=== PATIENT | female | born 1960 | race Caucasian/White ===

== ENCOUNTER 2016-12-19 18:40 | Inpatient (IN) ==
[2016-12-19 19:54] LABS: Basophils # 0.1 K/mcL (0.0-0.2); Basophils % 0.5 %; Eosinophils # 0.2 K/mcL (0.0-0.6); Eosinophils % 2.6 %; Hematocrit 36.6 % (35.3-44.9); Hemoglobin 12.2 g/dL (11.5-15.4); Immature Granulocytes % 0.2 % (0-4); Lymphocytes # 1.9 K/mcL (0.6-4.6); Lymphocytes % 19.7 %; Mean Corpuscular HGB Conc 33.3 g/dL (31.6-35.5); Mean Corpuscular Hemoglobin 29.9 pg (28.0-33.3); Mean Corpuscular Volume 89.7 fL (83.0-100.0); Mean Platelet Volume 11.4 fL (9.4-12.4); Monocytes # 0.8 K/mcL (0.0-1.3); Monocytes % 8.8 %; Neutrophils # 6.4 K/mcL (1.6-8.9); Platelet Count 226 K/mcL (140-400); Red Blood Count 4.08 M/mcL (3.82-4.97); Red Cell Distribution Width 14.8 % (11.5-14.5); Segmented Neutrophils % 68.2 %
[2016-12-19 20:07] LABS: Acetaminophen < 1.0 mcg/mL (10-30); BUN/Creatinine Ratio 15 (6-26); Blood Urea Nitrogen 13 mg/dL (7-20); Calcium 9.2 mg/dL (8.6-10.8); Carbon Dioxide 18 mEq/L (19-29); Chloride 110 mEq/L (98-109); Ethanol < 10 mg/dL (0-10); Glucose 142 mg/dL (70-99); Osmolality,Calculated 293 (280-300); Potassium 2.9 mEq/L (3.5-4.5); Salicylate < 5.0 mg/dL (15-30); Sodium 140 mEq/L (136-145); eGFR For African Americans > 60 (> 60); eGFR For Non-African Americans > 60 (> 60)
[2016-12-19 20:24] LABS: Bilirubin,Urine Large (Negative); Blood,Urine Negative (Negative); Clarity,Urine Cloudy (Clear); Color,Urine Dark Yellow (Yellow); Glucose,Urine (UA) Normal (Normal); Ketones,Urine 15 mg/dL (Negative); Leukocyte Esterase,Urine Small (Negative); Nitrite,Urine Negative (Negative); PH,Urine 5.5 pH Units (5.0-8.0); Protein,Urine Negative (Neg-Trace); Specific Gravity,Urine 1.027 (1.010-1.025); Urobilinogen,Urine Normal (Normal)
[2016-12-19 20:26] LABS: Squamous Epithelial Cell,Urine Many per lpf (None-Few); WBC,Urine 15-30 per hpf (0-3)
[2016-12-19 20:26] LABS: Thyroid Stimulating Hormone 0.413 mcIU/mL (0.350-4.840)
[2016-12-19 20:29] LABS: Amphetamine Screen,Urine Negative ng/mL (Cutoff=1000); Barbiturate Screen,Urine Negative ng/mL (Cutoff=200); Benzodiazepines Screen,Urine Negative ng/mL (Cutoff=200); Cannabinoid Screen,Urine Negative ng/mL (Cutoff = 50); Cocaine Screen,Urine Negative ng/mL (Cutoff= 300); Opiate Screen,Urine Negative ng/mL (Cutoff=300); Phencyclidine Screen,Urine Negative ng/mL (Cutoff=25)
[2016-12-19 20:47] LABS: Bacteria,Urine Few per hpf (None-Few); Mucus,Urine Moderate (Few)
--- NOTE | 2016-12-19 21:00 | Emergency Department Note ---
Disposition Clinical Impression: Hypokalemia, Delusions, Paranoia Disposition: Admitted As Inpatient Condition: Good Psych HPI - General Chief Complaint: ED Psychiatric Symptoms Stated Complaint: Psych consult Time Seen by Provider: 12/19/16 19:08 Source: patient Limitations: no limitations Nursing Notes Reviewed: Yes Vital Signs Reviewed: Yes - History of Present Illness HPI Narrative: 56-year-old female presents emergency room for psychiatric evaluation. Patient was sent in by local police department. Patient states that she has been having problems with her lately. She is also been complaining of a cleaning lady stealing things from their house as well as having sex with her . She also feels like she has inside information on recent killings in [facility]. Per reports, patient has been paranoid and delusional. She denies any homicidal or suicidal thoughts to me. Patient has a long extensive story that is currently taking place at home with her and his cleaning lady that was fired. It is unknown whether this is a true story are not. Pt complaint: feels depressed Onset (ago): unknown Duration: constant Improves with: none Worsens with: none Context: significant life stressor Alleged intoxication: No Associated Psychiatric Symptoms: delusions Associated symptoms: Reports: denies other symptoms Traumatic symptoms: denies traumatic injury Treatments prior to arrival: none - Related Data Home Medications Medication Instructions Recorded Confirmed Cetirizine HCl [Zyrtec] 10 mg PO DAILY 12/17/16 12/20/16 Cevimeline HCl [Evoxac] 30 mg PO BID 12/17/16 12/20/16 Cholecalciferol (Vitamin D3) 1,000 unit PO DAILY 12/17/16 12/20/16 [Vitamin D3] Cyanocobalamin (Vitamin B-12) 1,000 mcg PO Q48H 12/17/16 12/20/16 [Vitamin B12] Docusate [Colace] 100 mg PO DAILY 12/17/16 12/20/16 Fentanyl 1 each TD Q72H 12/17/16 12/20/16 Folic Acid 0.8 mg PO DAILY 12/17/16 12/20/16 Lisinopril [Zestril] 2.5 mg PO DAILY 12/17/16 12/20/16 Mirabegron [Myrbetriq] 50 mg PO HS 12/17/16 12/20/16 Mv,Calcium,Min/Iron/Folic/Vitk 1 tab PO DAILY 12/17/16 12/20/16 [Multi For Her Tablet] Pantoprazole Sodium 40 mg PO DAILY 12/17/16 12/20/16 Sertraline [Zoloft] 50 mg PO QAM 12/17/16 12/20/16 Simvastatin [Zocor] 40 mg PO HS 12/17/16 12/20/16 SitaGLIPtin [Januvia] 100 mg PO DAILY 12/17/16 12/20/16 Tiagabine [Gabitril] 12 mg PO HS 12/17/16 12/20/16 Topiramate [Topamax] 200 mg PO BID 12/17/16 12/20/16 BuPROPion XL (24 HR) [Wellbutrin 300 mg PO QAM 12/20/16 12/20/16 Xl] Cyclobenzaprine [Flexeril] 10 mg PO HS 12/20/16 12/20/16 Cyclosporine [Restasis] 1 drop OP BID 12/20/16 12/20/16 Fluconazole [Diflucan] 100 mg PO QWEEK 12/20/16 12/20/16 Levothyroxine Sodium [Levo-T] 250 mcg PO DAILY 12/20/16 12/20/16 Levothyroxine [Levothyroxine 137 mcg PO DAILY@0630 12/20/16 12/20/16 Sodium] Tizanidine HCl 4 mg PO Q8H PRN 12/20/16 12/20/16 Previous Rx's Medication Instructions Recorded Aripiprazole [Abilify] 5 mg PO HS #30 tablet 12/23/16 Gabapentin [Neurontin] 200 mg PO TID #90 capsule 12/23/16 Allergies Allergy/AdvReac Type Severity Reaction Status Date / Time Penicillins Allergy Anaphylaxis Verified 12/17/16 22:20 acetaminophen AdvReac See Verified 12/17/16 22:20 [From Ashia] Comments adhesive tape AdvReac See Verified 12/17/16 22:20 Comments Amoxicillin AdvReac See Verified 12/17/16 22:20 Comments ampicillin AdvReac Rash Verified 12/17/16 22:20 azithromycin AdvReac Hives Verified 12/17/16 22:20 bacitracin AdvReac See Verified 12/17/16 22:20 Comments brompheniramine AdvReac See Verified 12/17/16 22:20 [From Dimetapp Comments (brompheniramine-PPA)] butalbital [From Fioricet] AdvReac Hives Verified 12/17/16 22:20 caffeine [From Fioricet] AdvReac Hives Verified 12/17/16 22:20 chocolate flavor AdvReac Rash Verified 12/17/16 22:20 ciprofloxacin [From Cipro] AdvReac Nausea Verified 12/17/16 22:20 clarithromycin [From Biaxin] AdvReac Rash Verified 12/17/16 22:20 codeine AdvReac See Verified 12/17/16 22:20 Comments doxycycline AdvReac Rash Verified 12/17/16 22:20 Erythromycin Base AdvReac Nausea Verified 12/17/16 22:20 hydrocodone AdvReac Rash Verified 12/17/16 22:20 Hydromorphone [From Dilaudid] AdvReac See Verified 12/17/16 22:20 Comments meclizine [From Antivert] AdvReac Nausea Verified 12/17/16 22:20 methocarbamol [From Robaxin] AdvReac Hives Verified 12/17/16 22:20 morphine AdvReac Nausea Verified 12/17/16 22:20 pentazocine [From Talwin] AdvReac See Verified 12/17/16 22:20 Comments phenylpropanolamine AdvReac See Verified 12/17/16 22:20 [From Dimetapp Comments (brompheniramine-PPA)] Procaine [From Novocain] AdvReac Redness of Verified 12/17/16 22:20 Skin propoxyphene AdvReac See Verified 12/17/16 22:20 [From Darvocet-N] Comments Tetanus Vaccines and Toxoid AdvReac See Verified 12/17/16 22:20 [Tetanus Vaccines & Toxoid] Comments All systems ED: reviewed and negative except as stated. Constitutional: Reports: as per HPI Eyes: Reports: as per HPI ENT ED: Reports: as per HPI Cardiovascular: Reports: as per HPI Respiratory: Reports: as per HPI Gastrointestinal: Reports: as per HPI Genitourinary: Reports: as per HPI Musculoskeletal: Reports: as per HPI Integumentary: Reports: as per HPI Neurological: Reports: as per HPI Psychiatric: Reports: anxiety, depression. Denies: suicidal thoughts, homicidal thoughts, auditory hallucinations, visual hallucinations Endocrine: Reports: as per HPI Hematological/Lymphatic: Reports: as per HPI Past Medical History - Past Medical History Medical history: Reports: arthritis, asthma, diabetes, fibromyalgia, GERD, hyperlipidemia, hypertension, liver disease, seizures, thyroid disease Surgical history: Reports: cataract, cholecystectomy, knee replacement, orthopedic, other Psychiatric history: Reports: no psych history [employer] SAL[employer] TRA[employer]ER history: Reports: no [employer] SAL[employer] TRA[employer]ER history - Social History Smoking Status: Never smoker Smokeless Tobacco Status: No Alcohol use: Reports: none Drug use: Reports: none Physical Exam - General Limitations: other General appearance: in no apparent distress - Head Head exam: atraumatic, normocephalic - Eye Eye exam: Present: normal appearance - ENT ENT exam: normal exam - Neck Neck exam: Present: normal inspection - Chest Chest inspection: Present: normal inspection - Respiratory Respiratory exam: Present: normal lung sounds bilaterally - Cardiovascular Cardiovascular exam: Present: regular rate, normal rhythm - Abdominal Exam Abdominal exam: Present: soft, Non-Tender, normal bowel sounds - Extremities Exam Extremities exam: Present: normal inspection - Back Exam Back exam: Present: normal inspection - Neurological Exam Neurological exam: Present: alert, oriented X3 - Psychiatric Psychiatric exam: Present: flat affect, other (Abstract thoughts) - Skin Skin exam: Present: warm, dry, intact Course Vital Signs Temperature 98 F 12/19/16 19:22 Pulse Rate 99 12/19/16 19:22 Respiratory Rate 18 12/19/16 19:22 Blood Pressure 127/83 12/19/16 19:22 O2 Sat by Pulse Oximetry 96 12/19/16 19:22 Temperature 97.8 F 12/23/16 09:00 Pulse Rate 74 12/23/16 09:00 Respiratory Rate 18 12/23/16 09:00 Blood Pressure 134/84 12/23/16 09:00 O2 Sat by Pulse Oximetry 96 12/19/16 19:22 Oxygen Delivery Oxygen Delivery Room Air Psych - MDM Narrative Medical decision making narrative: Screening lab work revealed a low potassium of 2.9. Her EKG does not show any significant findings of this. We will plan to supplement with 40 mEq of potassium orally. Consult with psychiatric services. - Lab Data Result diagrams: 12/19/16 19:46 12/20/16 14:03 Lab Results 12/19/16 12/19/16 12/19/16 Range/Units 19:46 19:46 20:12 WBC 9.4 (4.3-11.1) K/mcL RBC 4.08 (3.82-4.97) M/mcL Hgb 12.2 (11.5-15.4) g/dL Hct 36.6 (35.3-44.9) % MCV 89.7 (83.0-100.0) fL MCH 29.9 (28.0-33.3) pg MCHC 33.3 (31.6-35.5) g/dL RDW 14.8 H (11.5-14.5) % Plt Count 226 (140-400) K/mcL MPV 11.4 (9.4-12.4) fL Immature Gran % 0.2 (0-4) % Seg Neutrophils % 68.2 % Lymphocytes % 19.7 % Monocytes % 8.8 % Eosinophils % 2.6 % Basophils % 0.5 % Neutrophils # 6.4 (1.6-8.9) K/mcL Lymphocytes # 1.9 (0.6-4.6) K/mcL Monocytes # 0.8 (0.0-1.3) K/mcL Eosinophils # 0.2 (0.0-0.6) K/mcL Basophils # 0.1 (0.0-0.2) K/mcL Sodium 140 (136-145) mEq/L Potassium 2.9 L (3.5-4.5) mEq/L Chloride 110 H (98-109) mEq/L Carbon Dioxide 18 L (19-29) mEq/L BUN 13 (7-20) mg/dL Creatinine 0.85 (0.57-1.11) mg/dL Est GFR ( Amer) > 60 (> 60) Est GFR (Non-Af Amer) > 60 (> 60) BUN/Creatinine Ratio 15 (6-26) Glucose 142 H (70-99) mg/dL Calculated Osmolality 293 (280-300) Calcium 9.2 (8.6-10.8) mg/dL TSH 0.413 (0.350-4.840) mcIU/mL Urine Color Dark Yellow (Yellow) Urine Clarity Cloudy A (Clear) Urine pH 5.5 (5.0-8.0) pH Units Ur Specific [place] 1.027 H (1.010-1.025) Urine Protein Negative (Neg-Trace) mg/dL Urine Glucose (UA) Normal (Normal) mg/dL Urine Ketones 15 H (Negative) mg/dL Urine Blood Negative (Negative) Urine Nitrite Negative (Negative) Urine Bilirubin Large H (Negative) Urine Urobilinogen Normal (Normal) mg/dL Ur Leukocyte Esterase Small H (Negative) Urine Microscopic RBC 3-5 H (0-3) per hpf Urine Microscopic WBC 15-30 H (0-3) per hpf Ur Squamous Epith Cells Many H (None-Few) per lpf Urine Bacteria Few (None-Few) per hpf Hyaline Casts Test Not Performed Urine Mucus Moderate H (Few) Salicylates < 5.0 L (15-30) mg/dL Urine Opiates Screen (Vqwtgr=910) ng/mL Acetaminophen < 1.0 L (10-30) mcg/mL Ur Barbiturates Screen (Uyycde=261) ng/mL Ur Phencyclidine Scrn (Cutoff=25) ng/mL Ur Amphetamines Screen (Ewqort=1197) ng/mL U Benzodiazepines Scrn (Ulyoqo=431) ng/mL Urine Cocaine Screen (Cutoff= 300) ng/mL U Marijuana (THC) Screen (Cutoff = 50) ng/mL Ethyl Alcohol < 10 (0-10) mg/dL 12/19/16 Range/Units 20:12 WBC (4.3-11.1) K/mcL RBC (3.82-4.97) M/mcL Hgb (11.5-15.4) g/dL Hct (35.3-44.9) % MCV (83.0-100.0) fL MCH (28.0-33.3) pg MCHC (31.6-35.5) g/dL RDW (11.5-14.5) % Plt Count (140-400) K/mcL MPV (9.4-12.4) fL Immature Gran % (0-4) % Seg Neutrophils % % Lymphocytes % % Monocytes % % Eosinophils % % Basophils % % Neutrophils # (1.6-8.9) K/mcL Lymphocytes # (0.6-4.6) K/mcL Monocytes # (0.0-1.3) K/mcL Eosinophils # (0.0-0.6) K/mcL Basophils # (0.0-0.2) K/mcL Sodium (136-145) mEq/L Potassium (3.5-4.5) mEq/L Chloride (98-109) mEq/L Carbon Dioxide (19-29) mEq/L BUN (7-20) mg/dL Creatinine (0.57-1.11) mg/dL Est GFR ( Amer) (> 60) Est GFR (Non-Af Amer) (> 60) BUN/Creatinine Ratio (6-26) Glucose (70-99) mg/dL Calculated Osmolality (280-300) Calcium (8.6-10.8) mg/dL TSH (0.350-4.840) mcIU/mL Urine Color (Yellow) Urine Clarity (Clear) Urine pH (5.0-8.0) pH Units Ur Specific [place] (1.010-1.025) Urine Protein (Neg-Trace) mg/dL Urine Glucose (UA) (Normal) mg/dL Urine Ketones (Negative) mg/dL Urine Blood (Negative) Urine Nitrite (Negative) Urine Bilirubin (Negative) Urine Urobilinogen (Normal) mg/dL Ur Leukocyte Esterase (Negative) Urine Microscopic RBC (0-3) per hpf Urine Microscopic WBC (0-3) per hpf Ur Squamous Epith Cells (None-Few) per lpf Urine Bacteria (None-Few) per hpf Hyaline Casts Urine Mucus (Few) Salicylates (15-30) mg/dL Urine Opiates Screen Negative (Hccoau=753) ng/mL Acetaminophen (10-30) mcg/mL Ur Barbiturates Screen Negative (Nyzpbf=613) ng/mL Ur Phencyclidine Scrn Negative (Cutoff=25) ng/mL Ur Amphetamines Screen Negative (Iwotzw=5875) ng/mL U Benzodiazepines Scrn Negative (Hgtzmg=067) ng/mL Urine Cocaine Screen Negative (Cutoff= 300) ng/mL U Marijuana (THC) Screen Negative (Cutoff = 50) ng/mL Ethyl Alcohol (0-10) mg/dL - EKG Data EKG attestation: Yes I reviewed and interpreted this EKG. EKG results narrative: Rate of 81. Normal sinus rhythm. Left axis deviation. CA interval 179. QRS 109. QT 431. No signs of acute ischemia. Psychiatric Medical Clearance - Medical Clearance Checklist Medical History: No Social History Section defined Current Vitals: Last Vital Signs Temp 97.8 F 12/23/16 09:00 Pulse 74 12/23/16 09:00 Resp 18 12/23/16 09:00 BP 134/84 12/23/16 09:00 Pulse Ox 96 12/19/16 19:22 Abnormal Labs: Abnormal lab results RDW 14.8 % (11.5-14.5) H 12/19/16 19:46 Chloride 110 mEq/L (98-109) H 12/20/16 14:03 Glucose 204 mg/dL (70-99) H 12/20/16 14:03 POC Glucose 123 (58-89) H 12/23/16 06:20 Urine Clarity Cloudy (Clear) A 12/19/16 20:12 Ur Specific [place] 1.027 (1.010-1.025) H 12/19/16 20:12 Urine Ketones 15 mg/dL (Negative) H 12/19/16 20:12 Urine Bilirubin Large (Negative) H 12/19/16 20:12 Ur Leukocyte Esterase Small (Negative) H 12/19/16 20:12 Urine Microscopic RBC 3-5 per hpf (0-3) H 12/19/16 20:12 Urine Microscopic WBC 15-30 per hpf (0-3) H 12/19/16 20:12 Ur Squamous Epith Cells Many per lpf (None-Few) H 12/19/16 20:12 Urine Mucus Moderate (Few) H 12/19/16 20:12 Salicylates < 5.0 mg/dL (15-30) L 12/19/16 19:46 Acetaminophen < 1.0 mcg/mL (10-30) L 12/19/16 19:46 Statement of Medical Clearance: I have evaluated the patient, reviewed diagnostic information, and certify that the patient's medical condition is sufficiently stable that transfer to the psychiatric unit does not pose a significant risk of deterioration.
--- NOTE | 2016-12-19 23:14 | Emergency Department Note ---
Disposition Clinical Impression: Hypokalemia, Delusions, Paranoia Disposition: Admitted As Inpatient Condition: Fair Referrals: NO,PCP [Primary Care Provider] - Forms: ED Satisfaction Letter Psych HPI - General Chief Complaint: ED Psychiatric Symptoms Stated Complaint: Psych consult Time Seen by Provider: 12/19/16 19:08 Source: patient - History of Present Illness Duration: constant Improves with: none Worsens with: none Associated symptoms: Reports: denies other symptoms Treatments prior to arrival: none - Related Data Home Medications Medication Instructions Recorded Confirmed BuPROPion [Wellbutrin] 150 mg PO BID 12/17/16 12/17/16 Cetirizine HCl [Zyrtec] 10 mg PO DAILY 12/17/16 12/17/16 Cevimeline HCl [Evoxac] 30 mg PO BID 12/17/16 12/17/16 Cholecalciferol (Vitamin D3) 1,000 unit PO DAILY 12/17/16 12/17/16 [Vitamin D] Cyanocobalamin (Vitamin B-12) 1,000 mcg PO DAILY 12/17/16 12/17/16 [Vitamin B12] Docusate [Colace] 100 mg PO DAILY 12/17/16 12/17/16 Fentanyl 1 each TD Q3-4D 12/17/16 12/17/16 Folic Acid 0.8 mg PO DAILY 12/17/16 12/17/16 Levothyroxine [Levothyroxine 68.5 mcg PO DAILY@0630 12/17/16 12/17/16 Sodium] Levothyroxine [Synthroid] 75 mcg PO 0630 12/17/16 12/17/16 Lisinopril [Zestril] 2.5 mg PO DAILY 12/17/16 12/17/16 Mirabegron [Myrbetriq] 50 mg PO HS 12/17/16 12/17/16 Mv,Calcium,Min/Iron/Folic/Vitk 1 each PO DAILY 12/17/16 12/17/16 [Multi For Her Tablet] Pantoprazole Sodium 40 mg PO DAILY 12/17/16 12/17/16 Sertraline [Zoloft] 50 mg PO DAILY 12/17/16 12/17/16 Simvastatin [Zocor] 40 mg PO HS 12/17/16 12/17/16 SitaGLIPtin [Januvia] 100 mg PO DAILY 12/17/16 12/17/16 Tiagabine [Gabitril] 12 mg PO HS 12/17/16 12/17/16 Topiramate [Topamax] 200 mg PO BID 12/17/16 12/17/16 Allergies Allergy/AdvReac Type Severity Reaction Status Date / Time Penicillins Allergy Anaphylaxis Verified 12/17/16 22:20 acetaminophen AdvReac See Verified 12/17/16 22:20 [From Darvocet-N] Comments adhesive tape AdvReac See Verified 12/17/16 22:20 Comments Amoxicillin AdvReac See Verified 12/17/16 22:20 Comments ampicillin AdvReac Rash Verified 12/17/16 22:20 azithromycin AdvReac Hives Verified 12/17/16 22:20 bacitracin AdvReac See Verified 12/17/16 22:20 Comments brompheniramine AdvReac See Verified 12/17/16 22:20 [From Dimetapp Comments (brompheniramine-PPA)] butalbital [From Fioricet] AdvReac Hives Verified 12/17/16 22:20 caffeine [From Fioricet] AdvReac Hives Verified 12/17/16 22:20 chocolate flavor AdvReac Rash Verified 12/17/16 22:20 ciprofloxacin [From Cipro] AdvReac Nausea Verified 12/17/16 22:20 clarithromycin [From Biaxin] AdvReac Rash Verified 12/17/16 22:20 codeine AdvReac See Verified 12/17/16 22:20 Comments doxycycline AdvReac Rash Verified 12/17/16 22:20 Erythromycin Base AdvReac Nausea Verified 12/17/16 22:20 hydrocodone AdvReac Rash Verified 12/17/16 22:20 Hydromorphone [From Dilaudid] AdvReac See Verified 12/17/16 22:20 Comments meclizine [From Antivert] AdvReac Nausea Verified 12/17/16 22:20 methocarbamol [From Robaxin] AdvReac Hives Verified 12/17/16 22:20 morphine AdvReac Nausea Verified 12/17/16 22:20 pentazocine [From Talwin] AdvReac See Verified 12/17/16 22:20 Comments phenylpropanolamine AdvReac See Verified 12/17/16 22:20 [From Dimetapp Comments (brompheniramine-PPA)] Procaine [From Novocain] AdvReac Redness of Verified 12/17/16 22:20 Skin propoxyphene AdvReac See Verified 12/17/16 22:20 [From Darvocet-N] Comments Tetanus Vaccines and Toxoid AdvReac See Verified 12/17/16 22:20 [Tetanus Vaccines & Toxoid] Comments Constitutional: Reports: as per HPI Eyes: Reports: as per HPI ENT ED: Reports: as per HPI Cardiovascular: Reports: as per HPI Respiratory: Reports: as per HPI Gastrointestinal: Reports: as per HPI Genitourinary: Reports: as per HPI Musculoskeletal: Reports: as per HPI Integumentary: Reports: as per HPI Neurological: Reports: as per HPI Psychiatric: Reports: anxiety, depression. 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 Fernandes. Please refer to his note for complete details of history and physical examination. At shift change the patient is being evaluated by the psychiatry service and is awaiting disposition based on the recommendation. Psychiatry evaluated patient in the emergency department and will admit the patient to the psychiatry service here. Vital Signs Temperature 98 F 12/19/16 19:22 Pulse Rate 99 12/19/16 19:22 Respiratory Rate 18 12/19/16 19:22 Blood Pressure 127/83 12/19/16 19:22 O2 Sat by Pulse Oximetry 96 12/19/16 19:22 Temperature 98 F 12/19/16 19:22 Pulse Rate 99 12/19/16 19:22 Respiratory Rate 18 12/19/16 19:22 Blood Pressure 127/83 12/19/16 19:22 O2 Sat by Pulse Oximetry 96 12/19/16 19:22 Oxygen Delivery Oxygen Delivery Room Air Psych - Lab Data Result diagrams: 12/19/16 19:46 12/19/16 19:46 Lab Results 12/19/16 12/19/16 12/19/16 Range/Units 19:46 19:46 20:12 WBC 9.4 (4.3-11.1) K/mcL RBC 4.08 (3.82-4.97) M/mcL Hgb 12.2 (11.5-15.4) g/dL Hct 36.6 (35.3-44.9) % MCV 89.7 (83.0-100.0) fL MCH 29.9 (28.0-33.3) pg MCHC 33.3 (31.6-35.5) g/dL RDW 14.8 H (11.5-14.5) % Plt Count 226 (140-400) K/mcL MPV 11.4 (9.4-12.4) fL Immature Gran % 0.2 (0-4) % Seg Neutrophils % 68.2 % Lymphocytes % 19.7 % Monocytes % 8.8 % Eosinophils % 2.6 % Basophils % 0.5 % Neutrophils # 6.4 (1.6-8.9) K/mcL Lymphocytes # 1.9 (0.6-4.6) K/mcL Monocytes # 0.8 (0.0-1.3) K/mcL Eosinophils # 0.2 (0.0-0.6) K/mcL Basophils # 0.1 (0.0-0.2) K/mcL Sodium 140 (136-145) mEq/L Potassium 2.9 L (3.5-4.5) mEq/L Chloride 110 H (98-109) mEq/L Carbon Dioxide 18 L (19-29) mEq/L BUN 13 (7-20) mg/dL Creatinine 0.85 (0.57-1.11) mg/dL Est GFR ( Amer) > 60 (> 60) Est GFR (Non-Af Amer) > 60 (> 60) BUN/Creatinine Ratio 15 (6-26) Glucose 142 H (70-99) mg/dL Calculated Osmolality 293 (280-300) Calcium 9.2 (8.6-10.8) mg/dL TSH 0.413 (0.350-4.840) mcIU/mL Urine Color Dark Yellow (Yellow) Urine Clarity Cloudy A (Clear) Urine pH 5.5 (5.0-8.0) pH Units Ur Specific [place] 1.027 H (1.010-1.025) Urine Protein Negative (Neg-Trace) mg/dL Urine Glucose (UA) Normal (Normal) mg/dL Urine Ketones 15 H (Negative) mg/dL Urine Blood Negative (Negative) Urine Nitrite Negative (Negative) Urine Bilirubin Large H (Negative) Urine Urobilinogen Normal (Normal) mg/dL Ur Leukocyte Esterase Small H (Negative) Urine Microscopic RBC 3-5 H (0-3) per hpf Urine Microscopic WBC 15-30 H (0-3) per hpf Ur Squamous Epith Cells Many H (None-Few) per lpf Urine Bacteria Few (None-Few) per hpf Hyaline Casts Test Not Performed Urine Mucus Moderate H (Few) Salicylates < 5.0 L (15-30) mg/dL Urine Opiates Screen (Cwmzpw=605) ng/mL Acetaminophen < 1.0 L (10-30) mcg/mL Ur Barbiturates Screen (Kfykwt=324) ng/mL Ur Phencyclidine Scrn (Cutoff=25) ng/mL Ur Amphetamines Screen (Rxrmsb=2594) ng/mL U Benzodiazepines Scrn (Ftbkhn=836) ng/mL Urine Cocaine Screen (Cutoff= 300) ng/mL U Marijuana (THC) Screen (Cutoff = 50) ng/mL Ethyl Alcohol < 10 (0-10) mg/dL 12/19/16 Range/Units 20:12 WBC (4.3-11.1) K/mcL RBC (3.82-4.97) M/mcL Hgb (11.5-15.4) g/dL Hct (35.3-44.9) % MCV (83.0-100.0) fL MCH (28.0-33.3) pg MCHC (31.6-35.5) g/dL RDW (11.5-14.5) % Plt Count (140-400) K/mcL MPV (9.4-12.4) fL Immature Gran % (0-4) % Seg Neutrophils % % Lymphocytes % % Monocytes % % Eosinophils % % Basophils % % Neutrophils # (1.6-8.9) K/mcL Lymphocytes # (0.6-4.6) K/mcL Monocytes # (0.0-1.3) K/mcL Eosinophils # (0.0-0.6) K/mcL Basophils # (0.0-0.2) K/mcL Sodium (136-145) mEq/L Potassium (3.5-4.5) mEq/L Chloride (98-109) mEq/L Carbon Dioxide (19-29) mEq/L BUN (7-20) mg/dL Creatinine (0.57-1.11) mg/dL Est GFR ( Amer) (> 60) Est GFR (Non-Af Amer) (> 60) BUN/Creatinine Ratio (6-26) Glucose (70-99) mg/dL Calculated Osmolality (280-300) Calcium (8.6-10.8) mg/dL TSH (0.350-4.840) mcIU/mL Urine Color (Yellow) Urine Clarity (Clear) Urine pH (5.0-8.0) pH Units Ur Specific [place] (1.010-1.025) Urine Protein (Neg-Trace) mg/dL Urine Glucose (UA) (Normal) mg/dL Urine Ketones (Negative) mg/dL Urine Blood (Negative) Urine Nitrite (Negative) Urine Bilirubin (Negative) Urine Urobilinogen (Normal) mg/dL Ur Leukocyte Esterase (Negative) Urine Microscopic RBC (0-3) per hpf Urine Microscopic WBC (0-3) per hpf Ur Squamous Epith Cells (None-Few) per lpf Urine Bacteria (None-Few) per hpf Hyaline Casts Urine Mucus (Few) Salicylates (15-30) mg/dL Urine Opiates Screen Negative (Yjznxq=243) ng/mL Acetaminophen (10-30) mcg/mL Ur Barbiturates Screen Negative (Ecruop=565) ng/mL Ur Phencyclidine Scrn Negative (Cutoff=25) ng/mL Ur Amphetamines Screen Negative (Ltfdwn=5954) ng/mL U Benzodiazepines Scrn Negative (Zhttzw=780) ng/mL Urine Cocaine Screen Negative (Cutoff= 300) ng/mL U Marijuana (THC) Screen Negative (Cutoff = 50) ng/mL Ethyl Alcohol (0-10) mg/dL Psychiatric Medical Clearance - Medical Clearance Checklist Medical History: No Social History Section defined Current Vitals: Last Vital Signs Temp 98 F 12/19/16 19:22 Pulse 99 12/19/16 19:22 Resp 18 12/19/16 19:22 BP 127/83 12/19/16 19:22 Pulse Ox 96 12/19/16 19:22 Psychiatric Lab Panel: Drug Levels and Toxicity 12/19/16 12/19/16 19:46 20:12 Urine Opiates Screen Negative Acetaminophen < 1.0 L Ur Barbiturates Screen Negative Ur Phencyclidine Scrn Negative Ur Amphetamines Screen Negative U Benzodiazepines Scrn Negative Urine Cocaine Screen Negative U Marijuana (THC) Screen Negative Ethyl Alcohol < 10 Abnormal Labs: Abnormal lab results RDW 14.8 % (11.5-14.5) H 12/19/16 19:46 Potassium 2.9 mEq/L (3.5-4.5) L 12/19/16 19:46 Chloride 110 mEq/L (98-109) H 12/19/16 19:46 Carbon Dioxide 18 mEq/L (19-29) L 12/19/16 19:46 Glucose 142 mg/dL (70-99) H 12/19/16 19:46 Urine Clarity Cloudy (Clear) A 12/19/16 20:12 Ur Specific [place] 1.027 (1.010-1.025) H 12/19/16 20:12 Urine Ketones 15 mg/dL (Negative) H 12/19/16 20:12 Urine Bilirubin Large (Negative) H 12/19/16 20:12 Ur Leukocyte Esterase Small (Negative) H 12/19/16 20:12 Urine Microscopic RBC 3-5 per hpf (0-3) H 12/19/16 20:12 Urine Microscopic WBC 15-30 per hpf (0-3) H 12/19/16 20:12 Ur Squamous Epith Cells Many per lpf (None-Few) H 12/19/16 20:12 Urine Mucus Moderate (Few) H 12/19/16 20:12 Salicylates < 5.0 mg/dL (15-30) L 12/19/16 19:46 Acetaminophen < 1.0 mcg/mL (10-30) L 12/19/16 19:46 Statement of Medical Clearance: I have evaluated the patient, reviewed diagnostic information, and certify that the patient's medical condition is sufficiently stable that transfer to the psychiatric unit does not pose a significant risk of deterioration.
[2016-12-19] MEDS ORDERED: *HR* LORazepam 2 MG/ML VIAL IM ONE (23:35)
[2016-12-19] MEDS ORDERED: Haloperidol Lactate 5 MG/ML VIAL IM ONE (23:35)
[2016-12-20] MEDS ORDERED: Ondansetron ODT 4 MG TAB.RAPDIS SL ONE (01:04)
[2016-12-20] MEDS ORDERED: MOM Conc 10 ML UD.LIQ PO PRN (01:37)
[2016-12-20] MEDS ORDERED: *HR* LORazepam 1 MG TABLET PO PRN (01:37)
[2016-12-20] MEDS ORDERED: traZODone 50 MG TABLET PO PRN (01:37)
[2016-12-20] MEDS ORDERED: Mag Hydrox/Al Hydrox/Simeth 30 ML UDC PO PRN (01:37)
[2016-12-20] MEDS ORDERED: *HR* LORazepam 2 MG/ML VIAL IM PRN (01:37)
[2016-12-20] MEDS ORDERED: Haloperidol Lactate 5 MG/ML VIAL IM PRN (01:37)
[2016-12-20] MEDS ORDERED: hydrOXYzine pamoate 25 MG CAPSULE PO PRN (01:58)
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
[2016-12-20] MEDS ORDERED: tiZANidine 4 MG TABLET PO PRN (12:38)
[2016-12-20] MEDS ORDERED: Fluconazole 100 MG TABLET PO SCH ×2 (12:45→15:00)
[2016-12-20] MEDS ORDERED: Cyanocobalamin (B-12) 1,000 MCG TABLET PO SCH (12:45)
[2016-12-20] MEDS: Folic Acid 1 MG TABLET PO SCH (14:15)
[2016-12-20] MEDS: Cholecalciferol (D-3) 1,000 UNIT TABLET PO SCH (14:16)
[2016-12-20] MEDS: (Cevimeline Hcl [Evoxac] 30 MG) PO SCH ×2 (14:16→21:28)
[2016-12-20] MEDS: Loratadine 10 MG TABLET PO SCH (14:16)
[2016-12-20 14:53] LABS: BUN/Creatinine Ratio 11 (6-26); Blood Urea Nitrogen 10 mg/dL (7-20); Carbon Dioxide 22 mEq/L (19-29); Chloride 110 mEq/L (98-109); Glucose 204 mg/dL (70-99); Osmolality,Calculated 295 (280-300); Potassium 3.5 mEq/L (3.5-4.5); Sodium 140 mEq/L (136-145); eGFR For African Americans > 60 (> 60); eGFR For Non-African Americans > 60 (> 60)
[2016-12-20] MEDS: Cyanocobalamin (B-12) 1,000 MCG TABLET PO SCH (15:16)
--- NOTE | 2016-12-20 17:48 | Electrocardiograph Report ---
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
[2016-12-20] MEDS: Ibuprofen 400 MG TABLET PO PRN ×2 (18:42→23:21)
[2016-12-20] MEDS: Topiramate 100 MG TABLET PO SCH (20:52)
[2016-12-20] MEDS: (Cyclosporine [Restasis] 1 DROP) OP SCH (21:28)
[2016-12-21] MEDS: Ibuprofen 400 MG TABLET PO PRN (06:35)
[2016-12-21] MEDS: BuPROPion XL (24 HR) 150 MG TABLET PO SCH (08:56)
[2016-12-21] MEDS: *HR* SitaGLIPtin 100 MG TABLET PO SCH (08:56)
[2016-12-21] MEDS: Cholecalciferol (D-3) 1,000 UNIT TABLET PO SCH ×2 (08:56→09:18)
[2016-12-21] MEDS: Multivit/Ca/Min/Fe/FA 1 TAB TABLET PO SCH (08:56)
[2016-12-21] MEDS: Folic Acid 1 MG TABLET PO SCH ×2 (08:56→09:18)
[2016-12-21] MEDS: Loratadine 10 MG TABLET PO SCH (08:57)
[2016-12-21] MEDS: Topiramate 100 MG TABLET PO SCH ×2 (09:17→21:14)
[2016-12-21] MEDS: (Cyclosporine [Restasis] 1 DROP) OP SCH ×2 (11:35→22:06)
[2016-12-21] MEDS: (Cevimeline Hcl [Evoxac] 30 MG) PO SCH ×2 (11:35→22:06)
--- NOTE | 2016-12-21 14:01 | Psychiatry Progress Note ---
Date of Encounter: 12/21/16 Time of Encounter: 01:45 Subjective Interval history: Patient seen and interviewed. History and physical examination reviewed. Notes from social services counselor related to the family session between patient and her was reviewed. The family session occurred last evening and it was very clear from the family session that patient was acting in an extremely delusional and paranoid state. Patient was accusing of her and other people stealing things from her and has been having sex with the housekeepers. Patient continued to believe and accuse her of things which are not true. Patient lacks insight into her mental problems. During the interview today patient continued to remain fixated and paranoid towards her and accusing him of things which are not true. I encouraged the patient to attend groups and participate in activities. I briefly met with the patient and together and set some ground rules which included treating each other with kindness and not accusing each other. Both patient and are agreeable. I also discussed option of starting the patient on Abilify to help with her mood swings and irritability agitation and paranoia and patient is agreeable on taking it. Patient is also complaining of pain since she has been tapered off fentanyl and was requesting Motrin and Neurontin. Patient is encouraged to attend groups and start working on a safety plan. Review of Systems Psychiatric: Reports: depression, other (Paranoid delusions) Objective: Exam Patient orientation: Yes Person, Yes Time, Yes Place Level of alertness: Alert Patient appearance: Unkempt, Disheveled Behavior: anxious, tearful, restless, suspicious, talkative Psychomotor activity: Normal Eye contact: Maintains Eye Contact Mood description: Depressed, Anxious Affect description: labile, tearful, dysphoric Speech pattern: Rambling, Excessive Speech volume: Soft/Quiet Thought process: Loose Associations Thought content: Yes Paranoid delusion Perceptual disturbances: No Auditory hallucinations, No Visual hallucinations Judgment: Limited Insight: Minimal Results - Vital Signs Vital Signs: Temp Pulse Resp BP Pulse Ox 98.2 F 80 16 143/84 96 12/21/16 09:00 12/21/16 09:00 12/21/16 09:00 12/21/16 09:00 12/19/16 19:22 - Labs Labs: Laboratory Results - last 24 hr 12/20/16 14:03 Sodium 140 Potassium 3.5 Chloride 110 H Carbon Dioxide 22 BUN 10 Creatinine 0.92 Est GFR ( Amer) > 60 Est GFR (Non-Af Amer) > 60 BUN/Creatinine Ratio 11 Glucose 204 H Calculated Osmolality 295 Calcium 9.0 Assessment and Plan (1) MDD (major depressive disorder), recurrent, severe, with psychosis Current visit: Yes Status: Acute Plan: Continue hospitalization, Close observation, Suicide Precautions per unit protocol, Encourage participation in unit milieu, Group Therapy, Monitor sleep, Monitor appetite Additional Plan: Will initiate Abilify 5 mg at bedtime for paranoia and delusions. Patient will also be started on Neurontin and Motrin for her pain. Risks, benefits, side effects, alternatives discussed w/pt: Yes Patient agreeable to treatment: Yes Consult Discharge Plan - Plan Referrals: [facility] [Outside] - 12/25/16 1:00 pm (The above appointment will be with a crisis center clinician. After this appointment, you can be scheduled for ongoing counseling services. Please contact the clinic if you will not be able to keep this appointment. ) Марина Muro MD [Partnered Physician] - 12/27/16 11:00 am (The above appointment is with Марина Hennessy's associate. Марина is out of the office all next week.)
[2016-12-21] MEDS: Gabapentin 100 MG CAPSULE PO SCH ×2 (15:18→21:14)
[2016-12-21] MEDS: Ibuprofen 600 MG TABLET PO PRN (17:18)
[2016-12-21] MEDS: ARIPiprazole 5 MG TABLET PO SCH (21:15)
[2016-12-22] MEDS: Ibuprofen 600 MG TABLET PO PRN ×3 (05:23→23:40)
[2016-12-22] MEDS: Multivit/Ca/Min/Fe/FA 1 TAB TABLET PO SCH (09:07)
[2016-12-22] MEDS: BuPROPion XL (24 HR) 150 MG TABLET PO SCH (09:08)
[2016-12-22] MEDS: Gabapentin 100 MG CAPSULE PO SCH ×3 (09:08→21:13)
[2016-12-22] MEDS: *HR* SitaGLIPtin 100 MG TABLET PO SCH (09:08)
[2016-12-22] MEDS: Topiramate 100 MG TABLET PO SCH ×2 (09:08→21:15)
[2016-12-22] MEDS: Loratadine 10 MG TABLET PO SCH (09:08)
[2016-12-22] MEDS: (Cevimeline Hcl [Evoxac] 30 MG) PO SCH ×2 (09:12→21:18)
[2016-12-22] MEDS: (Cyclosporine [Restasis] 1 DROP) OP SCH ×2 (09:12→21:18)
--- NOTE | 2016-12-22 13:02 | Psychiatry Progress Note ---
Date of Encounter: 12/22/16 Time of Encounter: 01:14 Subjective Interval history: Pt seen and interviewed. Doing better today. Controlled and compliant and cooperative. Patient still demonstrating pressured and excessive speech. Patient is still paranoid towards her but has resolved most issues yesterday and is willing to work on her marital issues and challenges. Patient had a good visit with her last evening. She took the Abilify and has been tolerating it fairly well. Sleep and appetite good. Patient is labile and emotional. Discussed with safety plan and disposition plan. Patient does seem to be future oriented and is working on a safety plan. Review of Systems Psychiatric: Reports: depression, other (paranoia ) Objective: Exam Patient orientation: Yes Person, Yes Time, Yes Place Level of alertness: Alert Patient appearance: Appropriate, Well Groomed Behavior: calm, cooperative Psychomotor activity: Normal Eye contact: Maintains Eye Contact Mood description: Anxious Affect description: congruent with mood Speech pattern: Excessive, Pressured Speech volume: Normal Thought process: Racing Thought content: No Suicidal ideation, No Homicidal ideation, Yes Overt delusions, Yes Paranoid delusion Perceptual disturbances: No Auditory hallucinations, No Visual hallucinations Judgment: Fair Insight: Partial Results - Vital Signs Vital Signs: Temp Pulse Resp BP Pulse Ox 98.4 F 85 16 132/90 96 12/22/16 09:00 12/22/16 09:00 12/22/16 09:00 12/22/16 09:00 12/19/16 19:22 - Labs Labs: Laboratory Results - last 24 hr 12/22/16 08:50 POC Glucose 132 H Assessment and Plan (1) MDD (major depressive disorder), recurrent, severe, with psychosis Current visit: Yes Status: Acute Plan: Continue hospitalization, Close observation, Suicide Precautions per unit protocol, Encourage participation in unit milieu, Group Therapy, Monitor sleep, Monitor appetite, Family/Supportive other meeting Additional Plan: Continue current meds Possible d/c tomorrow Risks, benefits, side effects, alternatives discussed w/pt: Yes Patient agreeable to treatment: Yes Consult Discharge Plan - Plan Referrals: [facility] [Outside] - 12/25/16 1:00 pm (The above appointment will be with a crisis center clinician. After this appointment, you can be scheduled for ongoing counseling services. Please contact the clinic if you will not be able to keep this appointment. ) Марина Muro MD [Partnered Physician] - 12/27/16 11:00 am (The above appointment is with Марина Hennessy's associate. Марина is out of the office all next week.)
[2016-12-22] MEDS: Cyanocobalamin (B-12) 1,000 MCG TABLET PO SCH (15:06)
[2016-12-22] MEDS: ARIPiprazole 5 MG TABLET PO SCH (21:13)
[2016-12-23] MEDS: BuPROPion XL (24 HR) 150 MG TABLET PO SCH (09:01)
[2016-12-23] MEDS: Gabapentin 100 MG CAPSULE PO SCH ×2 (09:02→14:49)
[2016-12-23] MEDS: *HR* SitaGLIPtin 100 MG TABLET PO SCH (09:02)
[2016-12-23] MEDS: Loratadine 10 MG TABLET PO SCH (09:02)
[2016-12-23] MEDS: Multivit/Ca/Min/Fe/FA 1 TAB TABLET PO SCH (09:03)
[2016-12-23] MEDS: Topiramate 100 MG TABLET PO SCH (09:03)
[2016-12-23] MEDS: (Cevimeline Hcl [Evoxac] 30 MG) PO SCH (09:04)
[2016-12-23] MEDS: (Cyclosporine [Restasis] 1 DROP) OP SCH (09:04)
[2016-12-23 09:20] VITALS: BP 134/84
--- NOTE | 2016-12-23 13:49 | Discharge Summary ---
Date of Encounter: 12/23/16 Time of Encounter: 13:43 Diagnosis - Discharge Diagnosis (1) Moderate recurrent major depression Status: Acute Medications - Discharge Medications Prescriptions: Aripiprazole [Abilify] 5 mg PO HS #30 tablet Gabapentin [Neurontin] 200 mg PO TID #90 capsule Cetirizine HCl [Zyrtec] 10 mg PO DAILY 12/17/16 [History] Cevimeline HCl [Evoxac] 30 mg PO BID 12/17/16 [History] Cholecalciferol (Vitamin D3) [Vitamin D3] 1,000 unit PO DAILY 12/17/16 [History] Cyanocobalamin (Vitamin B-12) [Vitamin B12] 1,000 mcg PO Q48H 12/17/16 [History] Docusate [Colace] 100 mg PO DAILY 12/17/16 [History] Fentanyl 1 each TD Q72H 12/17/16 [History] Folic Acid 0.8 mg PO DAILY 12/17/16 [History] Lisinopril [Zestril] 2.5 mg PO DAILY 12/17/16 [History] Mirabegron [Myrbetriq] 50 mg PO HS 12/17/16 [History] Mv,Calcium,Min/Iron/Folic/Vitk [Multi For Her Tablet] 1 tab PO DAILY 12/17/16 [ History] Pantoprazole Sodium 40 mg PO DAILY 12/17/16 [History] Sertraline [Zoloft] 50 mg PO QAM 12/17/16 [History] Simvastatin [Zocor] 40 mg PO HS 12/17/16 [History] SitaGLIPtin [Januvia] 100 mg PO DAILY 12/17/16 [History] Tiagabine [Gabitril] 12 mg PO HS 12/17/16 [History] Topiramate [Topamax] 200 mg PO BID 12/17/16 [History] BuPROPion XL (24 HR) [Wellbutrin Xl] 300 mg PO QAM 12/20/16 [History] Cyclobenzaprine [Flexeril] 10 mg PO HS 12/20/16 [History] Cyclosporine [Restasis] 1 drop OP BID 12/20/16 [History] Fluconazole [Diflucan] 100 mg PO QWEEK 12/20/16 [History] Levothyroxine Sodium [Levo-T] 250 mcg PO DAILY 12/20/16 [History] Levothyroxine [Levothyroxine Sodium] 137 mcg PO DAILY@0630 12/20/16 [History] Tizanidine HCl 4 mg PO Q8H PRN 12/20/16 [History] Aripiprazole [Abilify] 5 mg PO HS #30 tablet 12/23/16 [Rx] Gabapentin [Neurontin] 200 mg PO TID #90 capsule 12/23/16 [Rx] Allergies Penicillins Allergy (Verified 12/17/16 22:20) Anaphylaxis acetaminophen [From Darvocet-N] Adverse Reaction (Verified 12/17/16 22:20) See Comments adhesive tape Adverse Reaction (Verified 12/17/16 22:20) See Comments Amoxicillin Adverse Reaction (Verified 12/17/16 22:20) See Comments pt unsure ampicillin Adverse Reaction (Verified 12/17/16 22:20) Rash azithromycin Adverse Reaction (Verified 12/17/16 22:20) Hives bacitracin Adverse Reaction (Verified 12/17/16 22:20) See Comments pt unsure brompheniramine [From Dimetapp (brompheniramine-PPA)] Adverse Reaction ( Verified 12/17/16 22:20) See Comments butalbital [From Fioricet] Adverse Reaction (Verified 12/17/16 22:20) Hives caffeine [From Fioricet] Adverse Reaction (Verified 12/17/16 22:20) Hives chocolate flavor Adverse Reaction (Verified 12/17/16 22:20) Rash ciprofloxacin [From Cipro] Adverse Reaction (Verified 12/17/16 22:20) Nausea clarithromycin [From Biaxin] Adverse Reaction (Verified 12/17/16 22:20) Rash codeine Adverse Reaction (Verified 12/17/16 22:20) See Comments doxycycline Adverse Reaction (Verified 12/17/16 22:20) Rash Erythromycin Base Adverse Reaction (Verified 12/17/16 22:20) Nausea hydrocodone Adverse Reaction (Verified 12/17/16 22:20) Rash Hydromorphone [From Dilaudid] Adverse Reaction (Verified 12/17/16 22:20) See Comments meclizine [From Antivert] Adverse Reaction (Verified 12/17/16 22:20) Nausea methocarbamol [From Robaxin] Adverse Reaction (Verified 12/17/16 22:20) Hives morphine Adverse Reaction (Verified 12/17/16 22:20) Nausea pentazocine [From Talwin] Adverse Reaction (Verified 12/17/16 22:20) See Comments phenylpropanolamine [From Dimetapp (brompheniramine-PPA)] Adverse Reaction ( Verified 12/17/16 22:20) See Comments Procaine [From Novocain] Adverse Reaction (Verified 12/17/16 22:20) Redness of Skin propoxyphene [From Darvocet-N] Adverse Reaction (Verified 12/17/16 22:20) See Comments Tetanus Vaccines and Toxoid [Tetanus Vaccines & Toxoid] Adverse Reaction ( Verified 12/17/16 22:20) See Comments Results Procedures and tests throughout hospitalization: Completed Lab Orders Category Date Time Status Chem 7 [Basic Metabolic Panel] Routine Lab 12/20/16 14:03 Completed Provider Date of admission: 12/19/16 23:41 Primary care physician: PCP NO Consults: 12/20/16 13:39 Consult to Pastoral Services [CONS] Routine Comment: 12/20/16 14:14 Consult to Pastoral Services [CONS] Routine Comment: Discharging clinician: Rolando Warner Assessment and Plan - Patient/Caregiver Discharge Instructions Activity: resume usual activities as tolerated Diet: regular diet - Follow up Plan Follow up with: [facility] [Outside] - 12/25/16 1:00 pm (The above appointment will be with a crisis center clinician. After this appointment, you can be scheduled for ongoing counseling services. Please contact the clinic if you will not be able to keep this appointment. ) Марина Muro MD [Partnered Physician] - 12/27/16 11:00 am (The above appointment is with Марина Hennessy's associate. Марина is out of the office all next week.) Functional capacity at discharge: independent ambulation Overall status at discharge: Stable Disposition: Home, Self-Care Hospital Course Hospital course: Ms. Mcdowell is a 56 year old female admitted for recurrent major depression and suicidal ideation and paranoid delusions. For detailed admission [facility]. On the units patient displayed pressured and tangential speech, she was preoccupied with cheating on her, she also was occupied with marital issues and and had suicidal ideation. Patient was restarted on her medication she was encouraged to participate in activities and learn new coping skills , she met with oncology social worker with her and conflict issues were discussed and plans for marital counseling and follow-up after discharge were recommended. Prior to discharge patient was medically stable denies suicidal ideation, did not present any paranoid delusions and she was planning on having marital therapy to resolve relationship issues. At this time patient does not meet criteria for inpatient hospitalization and will be discharged in stable condition. - Time Spent with Patient Total time spent providing and/or coordinating discharge services: Greater than 30 minutes Quality - Multiple Antipsychotics Patient discharged on 2 or more antipsychotic medications: No Procedures - Procedures Procedures: Medication Management, Crisis Stabilization, Supportive Therapy, Group Therapy, Psychoeducational Therapy Mental Status Exam - Mental Status Exam Patient orientation: Yes Person, Yes Time, Yes Place Level of alertness: Alert Patient appearance: Appropriate, Well Groomed, Obese Behavior: calm, cooperative Psychomotor activity: Normal Eye contact: Maintains Eye Contact Mood description: Euthymic/stable Affect description: congruent with mood, full range Speech pattern: Normal rate, Normal rhythm, Normal tone Speech Volume: Normal Thought process: Linear, Goal Oriented Thought Content: No Suicidal ideation, No Homicidal ideation, No Overt delusions Perceptual Disturbances: No Auditory hallucinations, No Visual hallucinations Judgment: Limited Insight: Partial
[2016-12-23] MEDS: Ibuprofen 600 MG TABLET PO PRN (14:49)
== END 2016-12-23 15:05 | disposition home or self-care (01) | DRG 885 ==
LOC: EMEROO 18:40 → 1ANU 23:41 → SUATTDRO 23:41 → 1ANU 12-20 01:23
PROVIDERS: ADMIT Psychiatry & Neurology Psychiatry; ATTEND Psychiatry & Neurology Psychiatry